=== PATIENT | male | born 1940 | race Caucasian/White ===

== ENCOUNTER 2017-12-09 13:13 | Inpatient (IN) ==
[2017-12-09] MEDS ORDERED: guaiFENesin/DM ER 600-30 MG TABLET PO PRN (13:39)
[2017-12-09] MEDS ORDERED: MAGNESIUM SULF RIDER 2 GM in PREMIX 1 EACH IV PRN (13:39)
[2017-12-09] MEDS ORDERED: DOCUSATE SODIUM 100 MG CAPSULE PO PRN (13:39)
[2017-12-09] MEDS ORDERED: LACTULOSE 20 GM/30 ML UDCUP PO PRN (13:39)
[2017-12-09] MEDS ORDERED: ZALEPLON 5 MG CAPSULE PO PRN (13:39)
[2017-12-09] MEDS ORDERED: MAGNESIUM SULF RIDER 4 GM in PREMIX 1 EACH IV PRN (13:39)
[2017-12-09] MEDS ORDERED: ONDANSETRON 4 MG/2 ML VIAL IV PRN (13:39)
[2017-12-09] MEDS ORDERED: diphenhydrAMINE CAP 25 MG CAPSULE PO PRN (13:39)
[2017-12-09] MEDS ORDERED: ASPIRIN EC 81 MG TABLET PO SCH (14:00)
[2017-12-09 15:30] LABS: Albumin 3.6 G/DL (3.4-5.0); Bilirubin,Total 0.9 MG/DL (0.2-1.0); Calcium 9.2 MG/DL (8.5-10.1); Osmolality,Calculated 280.1 MOS/KG (273-304); Potassium 4.2 MMOL/L (3.5-5.1); Risk Ratio 5.69; Thyroid Stimulating Hormone 3.54 uIU/ml (0.358-3.74); Total Protein 6.7 G/DL (6.4-8.3); VLDL CHOLESTEROL 62.8 MG/DL
[2017-12-09] MEDS ORDERED: NITROGLYCERIN SL 0.4 MG TABLET SL PRN (15:30)
[2017-12-09 15:34] LABS: Troponin I Only < 0.015 NG/ML (0.00-0.045)
[2017-12-09] MEDS: METOPROLOL TARTRATE 25 MG TABLET PO SCH ×2 (15:37→20:47)
[2017-12-09] MEDS: PANTOPRAZOLE 40 MG TABLET PO SCH (15:37)
[2017-12-09 15:47] LABS: Basophils % 0.5 % (0.0-0.8); Eosinophils % 0.3 % (0.00-10.9); Hematocrit 23.2 VOL% (42.0-52.0); Hemoglobin 6.9 GM/DL (14.0-18.0); Immature Granulocytes % 10.3 %; Immature Granulocytes Absolute 0.65 #; Lymphocytes # 1.6 10*3/uL (1.4-4.0); Lymphocytes % 25.9 % (21.2-54.2); Mean Corpuscular HGB Conc 29.7 GM/DL (32-36); Mean Corpuscular Hemoglobin 23 PG (27-34); Mean Corpuscular Volume 78.1 FL (87-102); Monocytes # 0.8 10*3/uL (0.11-0.8); Monocytes % 12.6 % (1.7-12.7); NRBC # 0.13 10*3/uL; Neutrophils # 3.2 10*3/uL (1.4-7.4); Neutrophils % 50.4 % (38.7-73.9); Red Blood Count 2.97 MC/CUMM (3.8-5.5); Red Cell Distribution Width 18.8 % (9.3-17.3); White Blood Count 6.3 T/CUMM (4-12)
[2017-12-09 15:49] LABS: Platelet Count 13 T/CUMM (130-400)
[2017-12-09] MEDS ORDERED: ENOXAPARIN 80 MG/0.8 ML SYRINGE SUBCUT ONE (15:55)
[2017-12-09 16:14] LABS: Basophils % 0.5 % (0.0-0.8); Eosinophils % 0.3 % (0.00-10.9); Hematocrit 23.4 VOL% (42.0-52.0); Hemoglobin 7.1 GM/DL (14.0-18.0); Immature Granulocytes % 10.3 %; Immature Granulocytes Absolute 0.63 #; Lymphocytes # 1.3 10*3/uL (1.4-4.0); Lymphocytes % 21.1 % (21.2-54.2); Mean Corpuscular HGB Conc 30.3 GM/DL (32-36); Mean Corpuscular Hemoglobin 24 PG (27-34); Mean Corpuscular Volume 78.8 FL (87-102); Monocytes # 0.9 10*3/uL (0.11-0.8); Monocytes % 15.1 % (1.7-12.7); NRBC # 0.12 10*3/uL; Neutrophils # 3.2 10*3/uL (1.4-7.4); Neutrophils % 52.7 % (38.7-73.9); Red Blood Count 2.97 MC/CUMM (3.8-5.5); White Blood Count 6.1 T/CUMM (4-12)
[2017-12-09] MEDS ORDERED: SODIUM CHLORIDE 0.9% 1,000 ML IV PRN (16:15)
[2017-12-09 16:16] LABS: Platelet Count 15 T/CUMM (130-400)
[2017-12-09 16:29] LABS: Folate 10.4 NG/ML (5.4-24.0); Vitamin B12 371 PG/ML (211-911)
[2017-12-09 16:34] LABS: Apearance,Urine CLEAR (Clear); Bilirubin,Urine Negative (Negative); Blood, Urine Negative (Negative); Glucose,Urine (UA) >=500 mg/dL (Negative); Ketones,Urine Negative (Negative); Mucus,Urine Occasional /LPF (Occasional); Nitrite,Urine Negative (Negative); Protein,Urine Negative; RBC,Urine <1 /HPF (0-4); Squamous Epithelial Cell,Urine Occasional /HPF (0-10); Urine Color Yellow (Yellow); Urine Specific Gravity 1.023 (1.001-1.035); Urine Urobilinogen < 2.0 EU/DL (0.2-1.0); WBC,Urine <1 /HPF (0-6)
[2017-12-09 16:56] LABS: INR 0.9
[2017-12-09 17:30] LABS: Sedimentation Rate-Westergren 24 MM/HR (0-20)
[2017-12-09 17:54] LABS: % Iron Saturation 31.8 % (18-50)
[2017-12-09 18:07] LABS: Troponin I Only < 0.015 NG/ML (0.00-0.045)
[2017-12-09 18:12] LABS: HIV Antigen/Antibody Result Nonreactive (Nonreactive); Hepatitis A Ab IgM Quant 0.12 Index; Hepatitis A Ab IgM Result Negative (Negative); Hepatitis B Core IgM Quant 0.17 Index; Hepatitis B Core IgM Result Negative (Negative); Hepatitis B Surface Ag Quant < 0.10 Index; Hepatitis B Surface Ag Result Negative (Negative); Hepatitis C Virus Ab Quant 0.07 Index; Hepatitis C Virus Ab Result Negative (Negative)
[2017-12-09 18:19] LABS: Band Neutrophils 1 % (0-10); Hypochromasia Slight; Lymphocytes 57 % (20-55); Metamyelocytes 10 %; Myelocytes 3 %; Platelet Estimate Decreased; Polychromasia Few; Segmented Neutrophils 25 % (50-85); Total Cells Counted 100
[2017-12-09] MEDS: TRETINOIN 10 MG CAPSULE PO SCH (20:44)
[2017-12-09] MEDS: ATORVASTATIN 40 MG TABLET PO SCH (20:47)
[2017-12-09 22:43] LABS: Troponin I Only < 0.015 NG/ML (0.00-0.045)
[2017-12-10 02:44] LABS: Basophils % 0.7 % (0.0-0.8); Eosinophils % 0.3 % (0.00-10.9); Hematocrit 28.1 VOL% (42.0-52.0); Hemoglobin 8.5 GM/DL (14.0-18.0); Immature Granulocytes % 11.1 %; Immature Granulocytes Absolute 0.65 #; Lymphocytes # 1.7 10*3/uL (1.4-4.0); Lymphocytes % 28.4 % (21.2-54.2); Mean Corpuscular HGB Conc 30.2 GM/DL (32-36); Mean Corpuscular Hemoglobin 24 PG (27-34); Mean Corpuscular Volume 80.5 FL (87-102); Monocytes # 0.8 10*3/uL (0.11-0.8); Monocytes % 12.8 % (1.7-12.7); NRBC # 0.15 10*3/uL; Neutrophils # 2.7 10*3/uL (1.4-7.4); Neutrophils % 46.7 % (38.7-73.9); Red Blood Count 3.49 MC/CUMM (3.8-5.5); Red Cell Distribution Width 18.3 % (9.3-17.3); White Blood Count 5.9 T/CUMM (4-12)
[2017-12-10 02:56] LABS: Platelet Count 11 T/CUMM (130-400)
[2017-12-10 02:58] LABS: PT Patient Result 10.1 SECS; Partial Thromboplastin Time 22.9 SECS (0-40)
[2017-12-10 03:10] LABS: Calcium 8.9 MG/DL (8.5-10.1); Potassium 4.5 MMOL/L (3.5-5.1)
[2017-12-10 03:16] LABS: Band Neutrophils 16 % (0-10); Eosinophils 3 % (0-10); Lymphocytes 35 % (20-55); Metamyelocytes 11 %; Myelocytes 3 %; Nucleated Red Blood Cells 3 (0-5); Segmented Neutrophils 22 % (50-85); Total Cells Counted 100
[2017-12-10 03:17] LABS: Albumin 3.4 G/DL (3.4-5.0); Anisocytosis 1+; Bilirubin,Direct 0.24 MG/DL (0.0-0.20); Bilirubin,Total 1.2 MG/DL (0.2-1.0); Total Protein 6.3 G/DL (6.4-8.3)
[2017-12-10 03:18] LABS: Acanthocytes 1+; Poikilocytosis 2+; Polychromasia 1+
[2017-12-10] MEDS ORDERED: SODIUM CHLORIDE 0.9% 1,000 ML IV PRN (05:59)
[2017-12-10 07:40] LABS: Hemoglobin A1 (Alkaline) 97.2 % (96.5-98.5); Hemoglobin A2 (Alkaline) 2.8 % (1.5-3.5)
[2017-12-10] MEDS ORDERED: LIDOCAINE 1% 20 ML VIAL IM ONE (08:35)
[2017-12-10] MEDS ORDERED: HEPARIN 5,000 UNIT/1 ML VIAL SUBCUT ONE (08:36)
[2017-12-10 09:42] LABS: Hematocrit 27.9 VOL% (42.0-52.0); Hemoglobin 8.9 GM/DL (14.0-18.0)
[2017-12-10] MEDS ORDERED: PANTOPRAZOLE 40 MG TABLET PO ONE (11:58)
[2017-12-10] MEDS: TRETINOIN 10 MG CAPSULE PO SCH ×2 (12:00→21:56)
[2017-12-10] MEDS: PANTOPRAZOLE 40 MG TABLET PO SCH ×2 (12:01→21:56)
[2017-12-10] MEDS: METOPROLOL TARTRATE 25 MG TABLET PO SCH ×2 (12:02→21:55)
[2017-12-10] MEDS ORDERED: GLYCOPYRROLATE 0.4 MG/2 ML VIAL ONE (14:57)
[2017-12-10] MEDS ORDERED: PROPOFOL 200 MG/20 ML VIAL IV ONE (14:57)
[2017-12-10] MEDS ORDERED: ETOMIDATE 20 MG/10 ML VIAL IV ONE (14:57)
[2017-12-10] MEDS ORDERED: LIDOCAINE 100 MG/5 ML SYRINGE ONE (14:57)
[2017-12-10] MEDS: ATORVASTATIN 40 MG TABLET PO SCH (21:55)
[2017-12-11 02:50] LABS: Basophils % 0.3 % (0.0-0.8); Eosinophils % 0.1 % (0.00-10.9); Hematocrit 26.7 VOL% (42.0-52.0); Hemoglobin 8.6 GM/DL (14.0-18.0); Immature Granulocytes % 9.3 %; Lymphocytes # 1.5 10*3/uL (1.4-4.0); Lymphocytes % 20.3 % (21.2-54.2); Mean Corpuscular HGB Conc 32.2 GM/DL (32-36); Mean Corpuscular Hemoglobin 26 PG (27-34); Mean Corpuscular Volume 79.2 FL (87-102); Mean Platelet Volume 10.5 FL (9.6-12.0); Monocytes # 1.3 10*3/uL (0.11-0.8); Monocytes % 17.4 % (1.7-12.7); NRBC # 0.14 10*3/uL; Neutrophils % 52.6 % (38.7-73.9); Red Blood Count 3.37 MC/CUMM (3.8-5.5); Red Cell Distribution Width 18.8 % (9.3-17.3); White Blood Count 7.5 T/CUMM (4-12)
[2017-12-11 03:00] LABS: Platelet Count 59 T/CUMM (130-400)
[2017-12-11 04:11] LABS: Calcium 8.9 MG/DL (8.5-10.1); Osmolality,Calculated 281.2 MOS/KG (273-304); Potassium 4.4 MMOL/L (3.5-5.1)
[2017-12-11] MEDS: ACETAMINOPHEN 325 MG TABLET PO PRN ×2 (06:05→22:35)
[2017-12-11 06:06] LABS: Band Neutrophils 2 % (0-10); Eosinophils 1 % (0-10); Lymphocytes 44 % (20-55); Metamyelocytes 6 %; Myelocytes 7 %; Nucleated Red Blood Cells 1 (0-5); Segmented Neutrophils 28 % (50-85); Total Cells Counted 100
[2017-12-11 06:09] LABS: Microcytosis 2+; Platelet Estimate Decreased
[2017-12-11 06:10] LABS: Polychromasia Few; Schistocytes 1+
[2017-12-11 06:11] LABS: Atypical Lymphocytes 1+; Burr Cells Few; Hypochromasia 1+
[2017-12-11] MEDS: METOPROLOL TARTRATE 25 MG TABLET PO SCH ×2 (08:48→22:34)
[2017-12-11] MEDS: INSULIN LISPRO 100 UNIT/ML SUBCUT SCH ×5 (08:48→22:34)
[2017-12-11] MEDS: PANTOPRAZOLE 40 MG TABLET PO SCH ×2 (08:48→22:35)
[2017-12-11] MEDS: TRETINOIN 10 MG CAPSULE PO SCH (08:48)
[2017-12-11] MEDS: POLYETHYLENE GLYCOL POWDER 17 GM PACK PO SCH ×2 (09:20→22:34)
[2017-12-11] MEDS: metFORMIN 500 MG TABLET PO SCH (17:03)
[2017-12-11] MEDS: ATORVASTATIN 40 MG TABLET PO SCH (22:34)
[2017-12-12 06:13] LABS: Basophils % 0.3 % (0.0-0.8); Eosinophils % 0.1 % (0.00-10.9); Hematocrit 26.1 VOL% (42.0-52.0); Hemoglobin 8.2 GM/DL (14.0-18.0); Immature Granulocytes % 10.3 %; Immature Granulocytes Absolute 0.96 #; Lymphocytes # 1.8 10*3/uL (1.4-4.0); Lymphocytes % 19.2 % (21.2-54.2); Mean Corpuscular HGB Conc 31.4 GM/DL (32-36); Mean Corpuscular Hemoglobin 25 PG (27-34); Mean Corpuscular Volume 80.3 FL (87-102); Monocytes # 1.9 10*3/uL (0.11-0.8); Monocytes % 20.9 % (1.7-12.7); Neutrophils # 4.6 10*3/uL (1.4-7.4); Neutrophils % 49.2 % (38.7-73.9); Red Blood Count 3.25 MC/CUMM (3.8-5.5); Red Cell Distribution Width 18.8 % (9.3-17.3); White Blood Count 9.3 T/CUMM (4-12)
[2017-12-12 06:17] LABS: Platelet Count 36 T/CUMM (130-400)
[2017-12-12 06:34] LABS: Calcium 9.6 MG/DL (8.5-10.1); Osmolality,Calculated 277.1 MOS/KG (273-304); Potassium 4.2 MMOL/L (3.5-5.1)
[2017-12-12 06:43] LABS: Band Neutrophils 12 % (0-10); Lymphocytes 31 % (20-55); Nucleated Red Blood Cells 3 (0-5); Segmented Neutrophils 44 % (50-85); Total Cells Counted 100
[2017-12-12 06:47] LABS: Hypochromasia Slight; Platelet Estimate Decreased
[2017-12-12] MEDS: INSULIN LISPRO 100 UNIT/ML SUBCUT SCH ×4 (08:22→21:29)
[2017-12-12] MEDS: METOPROLOL TARTRATE 25 MG TABLET PO SCH ×2 (08:22→21:30)
[2017-12-12] MEDS: metFORMIN 500 MG TABLET PO SCH ×2 (08:22→16:57)
[2017-12-12] MEDS: POLYETHYLENE GLYCOL POWDER 17 GM PACK PO SCH ×2 (08:23→21:33)
[2017-12-12] MEDS: PANTOPRAZOLE 40 MG TABLET PO SCH ×2 (08:24→21:30)
[2017-12-12] MEDS: ATORVASTATIN 40 MG TABLET PO SCH (21:30)
[2017-12-13 05:01] LABS: Basophils % 0.3 % (0.0-0.8); Hematocrit 22.8 VOL% (42.0-52.0); Hemoglobin 7.4 GM/DL (14.0-18.0); Immature Granulocytes % 10.3 %; Immature Granulocytes Absolute 0.69 #; Lymphocytes # 1.7 10*3/uL (1.4-4.0); Lymphocytes % 26.1 % (21.2-54.2); Mean Corpuscular HGB Conc 32.5 GM/DL (32-36); Mean Corpuscular Hemoglobin 26 PG (27-34); Mean Corpuscular Volume 78.6 FL (87-102); NRBC # 0.13 10*3/uL; Neutrophils # 3.2 10*3/uL (1.4-7.4); Neutrophils % 48.3 % (38.7-73.9); White Blood Count 6.7 T/CUMM (4-12)
[2017-12-13 05:09] LABS: Platelet Count 24 T/CUMM (130-400)
[2017-12-13 05:25] LABS: Lymphocytes 33 % (20-55); Metamyelocytes 2 %; Myelocytes 1 %; Nucleated Red Blood Cells 1 (0-5); Segmented Neutrophils 54 % (50-85); Total Cells Counted 100
[2017-12-13 05:26] LABS: Hypochromasia 1+; Microcytosis 1+; Platelet Estimate Decreased
[2017-12-13 05:27] LABS: Acanthocytes Few; Atypical Lymphocytes Few; Ovalocytes Slight
[2017-12-13 06:00] LABS: Calcium 8.9 MG/DL (8.5-10.1); Osmolality,Calculated 277.1 MOS/KG (273-304); Potassium 4.1 MMOL/L (3.5-5.1)
[2017-12-13] MEDS ORDERED: SODIUM CHLORIDE 0.9% 1,000 ML IV PRN (08:03)
[2017-12-13] MEDS: INSULIN LISPRO 100 UNIT/ML SUBCUT SCH ×3 (09:42→16:18)
[2017-12-13] MEDS: metFORMIN 500 MG TABLET PO SCH ×2 (09:43→17:38)
[2017-12-13] MEDS: POLYETHYLENE GLYCOL POWDER 17 GM PACK PO SCH (09:43)
[2017-12-13] MEDS: METOPROLOL TARTRATE 25 MG TABLET PO SCH (09:43)
[2017-12-13] MEDS: PANTOPRAZOLE 40 MG TABLET PO SCH (09:43)
[2017-12-13] MEDS: ACETAMINOPHEN 325 MG TABLET PO PRN (15:04)
[2017-12-13 17:06] VITALS: BP 119/63
[2017-12-13 17:55] LABS: Hematocrit 28.6 VOL% (42.0-52.0); Hemoglobin 9.2 GM/DL (14.0-18.0)
== END 2017-12-13 19:12 | disposition home or self-care (01) | DRG 834 ==
LOC: N.TELEN
PROVIDERS: ADMIT Internal Medicine Cardiovascular Disease; ATTEND Internal Medicine Clinical Cardiac Electrophysiology